=== PATIENT | female | born 1950 ===

== ENCOUNTER 2017-04-29 10:27 | Outpatient (CLI) | payer OTHER ==
[~2017-04-29] VITALS: Ht 160 cm; Wt 71.7 kg
[2017-04-29] MEDS ORDERED: FLONASE16 GM NASAL (11:10)
== END 2017-04-29 14:49 | disposition home or self-care (01) ==
LOC: OFIC 805 10:27
DX: R49.8 Other voice and resonance disorders (principal); R49.0 Dysphonia; J37.0 Chronic laryngitis; J31.0 Chronic rhinitis; R05 Cough

== ENCOUNTER 2019-01-27 09:37 | Outpatient (CLI) | payer OTHER ==
[~2019-01-27 09:37] MED LIST: FLONASE16 GM NASAL
== END 2019-01-27 09:43 | disposition home or self-care (01) ==
LOC: SONOGRAMA 09:37
DX: E04.2 Nontoxic multinodular goiter (principal)

== ENCOUNTER 2023-10-22 11:54 | Outpatient (CLI) | payer OTHER | END 2023-10-22 11:59 | disposition home or self-care (01) | LOC: SONOGRAMA 11:54 | PROVIDERS: ATTEND Pathology Anatomic Pathology & Clinical Pathology | DX: D34 Benign neoplasm of thyroid gland (principal); E07.89 Other specified disorders of thyroid; E04.1 Nontoxic single thyroid nodule ==

== ENCOUNTER 2024-11-17 14:23 | Outpatient (CLI) | payer OTHER | END 2024-11-17 14:25 | disposition home or self-care (01) | LOC: SONOGRAMA 14:23 | PROVIDERS: ATTEND Pathology Anatomic Pathology & Clinical Pathology | DX: D34 Benign neoplasm of thyroid gland (principal); E04.2 Nontoxic multinodular goiter ==